=== PATIENT | male | born 1995 | race Caucasian/White ===

== ENCOUNTER 2017-11-16 13:35 | Emergency (ER) | payer BC, OTHER ==
[~2017-11-16] VITALS: Ht 182.9 cm; Wt 74.8 kg
[~2017-11-16 13:35] MED LIST: ZYRTEC10 M3 PO
--- OUTSIDE RECORDS SUMMARY | 2017-11-16 13:43 | XMS REPORT ---
Author Organization Unknown Address [address] [place] [address] Phone [phone] Care Team Providers Care Paralegal Internship Name Role Phone JOSE PALMA MD 109 [phone] ALISE BRIZUELA MD 129 [phone] Allergies Code Code System Name Reaction Severity Status Onset NKDA Medications Name Status Start Date Stop Date albuterol sulfate 2.5 mg/3 mL (0.083 %) solution for nebulization Completed 01/27/2017 amoxicillin 500 mg capsule Completed 10/02/2016 azithromycin 250 mg tablet Completed 01/27/2017 benzonatate 100 mg capsule Completed 08/25/2016 ceftriaxone 1 gram solution for injection Take 1 g by injection route. Completed 01/27/2017 Cheratussin AC 10 mg-100 mg/5 mL oral liquid Completed 10/02/2016 ciprofloxacin 500 mg tablet Completed 11/15/2017 enoxaparin 30 mg/0.3 mL subcutaneous syringe Active Not available ipratropium-albuterol 0.5 mg-3 mg(2.5 mg base)/3 mL nebulization soln Completed 11/15/2017 lactulose 10 gram/15 mL oral solution Completed 11/15/2017 levofloxacin 500 mg tablet Completed 10/02/2016 methylprednisolone 4 mg tablets in a dose pack Completed 01/27/2017 Myrbetriq 50 mg tablet,extended release Completed 04/20/2017 pantoprazole 20 mg tablet,delayed release Take 1 tablet every day by oral route as directed for 14 days. 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 Upper Respiratory Infection Active Procedures Date Name Performed by 11/22/2016 Back Surgery Information not available 08/16/2016 Other Information not available Leg Surgery Procedure Notes: Right ORIF and augusto removal for Femur Fx Information not available 10/02/2016 XR, Chest [facility] [place] [address] [place] [address] (Work Place) 11/15/2017 US, Abdomen [facility] [place] [address] [place] [address] (Work Place) Notes: femur broken-2012 Lab Results Date Name Specimen Result Interpretation Description Value Range Status Address Urinalysis, Dipstick Color Color yellow [facility]: [address], [place] Color Appearance clear [facility]: [address] , [place] Color Glucose negative [facility]: [address] , [place] Color Bilirubin negative [facility]: [address], [place] Color Ketones negative [facility]: [address] , [place] Color Specific [place] 1.025 [facility]: [address], [place] Color Blood trace [facility]: [address], [place] Color PH 6.5 [facility]: [address], [place] Color Protein negative [facility]: [address] , [place] Color Urobilinogen 1 [facility] [place]: [address] [facility] [facility], [place] Color Nitrites negative [facility]: [address] [facility] [facility] , [place] Color Leukocytes trace [facility]: [address] , [place] Past Encounters 11/15/2017 Dark-brown Colored Urine; Malaise and Fatigue; Abdominal Pain; Nonulcer Dyspepsia; Paralysis Kam Ontiveros MD: [address] [place] [address], Ph. 04/20/2017 Paralysis; Acute Urinary Tract Infection; Constipation Loan Moore MD: [address] [place] [address], Ph. 01/27/2017 Abrasion of Foot; Open Wound of Foot; Paralysis; Adult Health Examination Carmella Hicks MD: [address] [place] [phone], Ph. 10/02/2016 Asthmatic Bronchitis Gustavo Holt MD: [address] [place] [phone], Ph. 08/25/2016 Acute Bronchitis; Adult Health Examination Carmella Hicks MD: [address] [place] [phone], Ph. Social History Smoking Status Never Smoker Vaccine List Notes: none Plan of Care Patient Instructions continue nebuliser and inh Reminders Provider Appointments None recorded. Lab None recorded. Referral None recorded. Procedures None recorded. Surgeries None recorded. Imaging None recorded. Vitals 11/15/2017 01:30PM Est Patient Height Weight Blood Pressure 6 ft 106/70 mm[Hg] 04/20/2017 02:00PM Est Patient Height Weight Blood Pressure 6 ft 102/78 mm[Hg] 01/27/2017 02:00PM Est Patient Height Weight Blood Pressure 6 ft 98/76 mm[Hg] 10/02/2016 01:30PM Est Patient Height Weight BMI Blood Pressure 6 ft 153 lbs 20.8 kg/m2 117/76 mm[Hg] 08/25/2016 11:30AM Est Patient Height Weight BMI Blood Pressure 6 ft 158 lbs 21.4 kg/m2 124/84 mm[Hg]
[2017-11-16 15:21] LABS: BASOPHILS # (AUTO) 0.1 (0.0-0.1); BASOPHILS % 0.8 % (0.0-1.0); EOSINOPHILS # (AUTO) 0.4 (0.0-0.4); HEMATOCRIT 43.1 % (38.2-49.6); HEMOGLOBIN 15.5 g/dL (14.0-18.0); LYMPHOCYTES % 33.6 % (18.0-39.1); MEAN CORPUSCULAR HEMOGLOBIN 30.6 pg (28-32); MEAN CORPUSCULAR VOLUME 85.2 fL (81-99); MONOCYTES # (AUTO) 0.8 (0.2-0.8); MONOCYTES % 8.6 % (4.4-11.3); NEUTROPHILS # (AUTO) 4.6 (2.1-6.9); NEUTROPHILS % 51.8 % (38.7-80.0); PLATELET COUNT 283 x10e3/uL (140-360); RED BLOOD COUNT 5.06 x10e6/uL (4.3-5.7); RED CELL DISTRIBUTION WIDTH 12.2 % (11.7-14.4)
[2017-11-16 15:28] LABS: INR 1.1; PROTHROMBIN TIME 13.4 seconds (11.9-14.5)
[2017-11-16 15:29] LABS: PARTIAL THROMBOPLASTIN TIME 25.7 seconds (23.8-35.5)
[2017-11-16 15:36] LABS: ALANINE AMINOTRANSFERASE 30 IU/L (0-55); ALBUMIN 3.4 g/dL (3.5-5.0); ALKALINE PHOSPHATASE 83 IU/L (40-150); BLOOD UREA NITROGEN 12 mg/dL (7-26); BUN/CREATININE RATIO 15 (6-25); CALCIUM 9.1 mg/dL (8.4-10.2); CARBON DIOXIDE 28 mmol/L (22-29); CHLORIDE 102 mmol/L (98-107); CREATININE, SERUM 0.79 mg/dL (0.72-1.25); EST GLOMERULAR FILTRATION RATE > 60 ML/MIN (60-); GLUCOSE 99 mg/dL (74-118); SODIUM 138 mmol/L (136-145)
[2017-11-16] MEDS ORDERED: TRIMETHOPRIM/SULFAMETHOXAZOLE 160-800 MG TAB PO ONE (17:15)
--- NOTE | 2017-11-16 18:07 | Diagnostic Imaging Report ---
PROCEDURE:X-RAY PELVIS, AP VIEW COMPARISON:None. INDICATIONS:PELVIC/LEFT LEG SWELLING FINDINGS: A sclerotic lesion measuring at least 2.3 cm in the lesser trochanter of the left femur is incompletely imaged. A 13 mm ossicle is immediately adjacent. The left femur is appropriately situated in the acetabulum. Proximal right femur is intact and normally situated. No diastases the pubic symphysis or sacroiliac joints. The pubic rami are intact. There is a bifid spinous process of S1. No degenerative changes of the lumbar spine. Visualized bowel gas pattern is unremarkable. CONCLUSION: Sclerosis of the lesser trochanter of the left femur, incompletely imaged. Ossicle adjacent to the lesser trochanter is suggestive of an avulsion fracture from the iliopsoas muscle. Dictated by: Asia Mcdonald M.D. on 11/16/2017 at 18:07 Electronically approved by: Asia Mcdonald M.D. on 11/16/2017 at 18:07
--- NOTE | 2017-11-16 18:12 | Diagnostic Imaging Report ---
PROCEDURE:FEMUR 2 VIEWS MINIMUM LEFT COMPARISON:[facility], DX, PELVIS AP 1-2 VIEWS, 11/16/2017, 18:45. INDICATIONS:PELVIC/LEFT LEG SWELLING, paralyzed from waist down FINDINGS: The bones are diffusely demineralized consistent with history of paralysis. Focal sclerosis of the lesser trochanter measures 2.7 x 2.0 cm. There is a narrow zone of transition. No associated fracture. There is an ossicle medial to the lesser trochanter measuring 1.3 x 1.0 cm. No conclusive evidence of donor site. The femoral head is normal in morphology. The femoral neck is intact. There no degenerative changes of the hip. The mid and distal femur are intact and normal in appearance. The patella is normally situated. No knee effusion. Tibia and fibula are unremarkable. Visualized bones of the pelvis are intact and normal in morphology. No air or radiopaque foreign bodies in the soft tissues. CONCLUSION: 1. Ossicle medial to the lesser trochanter is suggestive of an avulsion fracture, likely from the iliopsoas. Other entity to consider would be a tendinous calcification. 2. Sclerosis immediately adjacent could be the result of healing. 3. Recommend MRI of the hip on an outpatient basis for further evaluation. 4. No acute fracture or dislocation. Dictated by: Asia Mcdonald M.D. on 11/16/2017 at 18:13 Electronically approved by: Asia Mcdonald M.D. on 11/16/2017 at 18:13
[2017-11-16 18:57] VITALS: BP 119/75
== END 2017-11-16 19:20 | disposition home or self-care (01) ==
LOC: ER 13:46
DX: M79.89 Other specified soft tissue disorders (principal); S72.002A Fracture of unspecified part of neck of left femur, initial encounter for closed fracture; G83.89 Other specified paralytic syndromes; L89.329 Pressure ulcer of left buttock, unspecified stage
CPT/HCPCS: 36415; 72170; 80053; 85025; 85610; 85730; 93971; 99284

== ENCOUNTER 2018-01-05 18:37 | Emergency (ER) | payer BC, OTHER ==
[~2018-01-05] VITALS: Ht 185.4 cm; Wt 74.8 kg
--- OUTSIDE RECORDS SUMMARY | 2018-01-05 18:40 | XMS REPORT ---
Author [facility] Address Unknown Phone Unavailable Care Team Providers Care Hat Maker Name Role Phone ANN MARIE GOMEZ Unavailable Unavailable Problems This patient has no known problems. Allergies, Adverse Reactions, Alerts This patient has no known allergies or adverse reactions. Medications This patient has no known medications. Results Test Description Test Time Test Comments Text Results Atomic Results Result Comments PELVIS AP 1-2 VIEWS [place] [address] Patient Name: CINTHIA BLAKE MR #: [id number] : 1995 Age/Sex: 21/M Req #: [id number] Adm Physician: Ordered by: SHRUTI LAGUNAS [employer]OP FOREMAN Report #: [id number] Location: ER Room/Bed: Procedure: [id number] DX/PELVIS AP 1-2 VIEWS Exam Date: 11/16/17 Exam Time: 1745 REPORT STATUS: Signed PROCEDURE: X-RAY PELVIS, AP VIEW COMPARISON: None. INDICATIONS: PELVIC/LEFT LEG SWELLING FINDINGS: A sclerotic lesion measuring at least 2.3 cm in the lesser trochanter of the left femur is incompletely imaged. A 13 mm ossicle is immediately adjacent. The left femur is appropriately situated in the acetabulum. Proximal right femur is intact and normally situated. No diastases the pubic symphysis or sacroiliac joints. The pubic rami are intact. There is a bifid spinous process of S1. No degenerative changes of the lumbar spine. Visualized bowel gas pattern is unremarkable. CONCLUSION: Sclerosis of the lesser trochanter of the left femur, incompletely imaged. Ossicle adjacent to the lesser trochanter is suggestive of an avulsion fracture from the iliopsoas muscle. Dictated by: Ceci Mcdonald M.D. on 11/16/2017 at 18:07 Electronically approved by: Ceci Mcdonald M.D. on 11/16/2017 at 18:07 Dictated By: CECI MCDONALD MD 06 Transcribed By: BRENDA on 11/16/171806 COPY TO: SHRUTI LAGUNAS NP FEMUR 2 VIEWS MINIMUM LEFT [place] [address] Patient Name: CINTHIA BLAKE MR #: [id number] : 1995 Age/Sex: 21/M Req #: [id number] Adm Physician: Ordered by: SHRUTI LAGUNAS NP Report #: [id number] Location: ER Room/Bed: Procedure: [id number] DX/FEMUR 2 VIEWS MINIMUM LEFT Exam Date: Exam Time: REPORT STATUS: Signed PROCEDURE: FEMUR 2 VIEWS MINIMUM LEFT COMPARISON: [facility], DX, PELVIS AP 1- 2 VIEWS, 11/16/2017, 18:45. INDICATIONS: PELVIC/LEFT LEG SWELLING, paralyzed from waist down FINDINGS: The bones are diffusely demineralized consistent with history of paralysis. Focal sclerosis of the lesser trochanter measures 2.7 x 2.0 cm. There is a narrow zone of transition. No associated fracture. There is an ossicle medial to the lesser trochanter measuring 1.3 x 1.0 cm. No conclusive evidence of donor site. The femoral head is normal in morphology. The femoral neck is intact. There no degenerative changes of the hip. The mid and distal femur are intact and normal in appearance. The patella is normally situated. No knee effusion. Tibia and fibula are unremarkable. Visualized bones of the pelvis are intact and normal in morphology. No air or radiopaque foreign bodies in the soft tissues. CONCLUSION: 1. Ossicle medial to the lesser trochanter is suggestive of an avulsion fracture, likely from the iliopsoas. Other entity to consider would be a tendinous calcification. 2. Sclerosis immediately adjacent could be the result of healing. 3. Recommend MRI of the hip on an outpatient basis for further evaluation. 4. No acute fracture or dislocation. Dictated by: Ceci Mcdonald M.D. on 11/16/2017 at 18:13 Electronically approved by: Ceci Mcdonald M.D. on 11/16/2017 at 18:13 Dictated By: CECI MCDONALD MD 12 Transcribed By : BRENDA on 11/16/171812 COPY TO: SHRUTI LAGUNAS NP
--- OUTSIDE RECORDS SUMMARY | 2018-01-05 18:40 | XMS REPORT | Continuity of Care Document ---
Author Author [facility] Organization [facility] Address [address] [place] [address] Phone Unavailable Care Team Providers Care Pillowcase Turner Name Role Phone NONSTAFF PCP Unavailable Insurance Providers Guarantor Feliz Lao Address [address] [place] [address] Payer [facility]po Policy Number [id number] Subscriber's Name Feliz Lao Jr Relationship G8 Other Relationship Group Number [id number] Group [facility] Effective Date 13 Advance Directives Directive Response Recorded Date/Time Does the patient have an advance directive? No 10/25/13 4:32pm If yes, is advance directive on file with [facility]? No 10/25/13 4:32pm If not on file with [facility] will patient provide a copy? No 10/25/13 4:32pm Do you have a Directive to Physician? No 11/16/17 2:39pm Do you have a Medical Power of Extrusion Die Repairer? No 11/16/17 2:39pm Do you have an out of hospital Do Not Resuscitate Order? No 11/16/17 2:39pm Do you have any special needs we should be aware of? No 11/16/17 2:39pm Do you have a support person here with you today? Yes 11/16/17 2:39pm Did patient receive Notice of Privacy Practices? Yes 11/16/17 2:39pm Did patient receive patient rights and responsibilities? Yes 11/16/17 2:39pm Problems No problem information available. Medications Current Home Medications Medication Dose Units Route Directions Days Qty Instructions Start Date Cetirizine Hcl (Zyrtec) 10 Mg Capsule 10 Mg Oral Daily Social History Social History Problem Response Recorded Date/Time Onset Date Status Hx Psychiatric Problems No 10/25/2013 4:32pm Not Applicable Not Applicable Hx Eating Disorder No 10/25/2013 4:32pm Not Applicable Not Applicable Hx Substance Use Disorder Yes 10/25/2013 4:32pm Not Applicable Not Applicable Hx Depression No 10/25/2013 4:32pm Not Applicable Not Applicable Hx Alcohol Use No 10/25/2013 4:32pm Not Applicable Not Applicable Hx Substance Use Treatment No 10/25/2013 4:32pm Not Applicable Not Applicable Hx Physical Abuse No 10/25/2013 4:32pm Not Applicable Not Applicable Hospital Discharge Instructions No hospital discharge instruction information available. Plan of Care Discharge Date 11/16/17 7:20pm Disposition HOME, SELF-CARE Condition at Discharge Stable Forms Provided Work/School Excuse Prescriptions See Medication Section Referrals Dr NGA Jett VICTOR DO Address: [address] [place] [address] Additional Instructions/Education FOLLOW UP WITH PCP AND WITH MRI OF LEFT HIP NO STENUOUS ACTIVITY, NO WEIGHT BEARING RETURN TO EMERGENCY DEPARTMENT IF FEVER OVER 100.4 UNRELIEVED BY MEDICATIONS, CHEST PAIN OR SHORTNESS OF BREATH, OR ANY OTHER NEW SYMPTOMS AND/OR WORSENING CONDITIONS OF THE CURRENT Functional Status No functional status information available. Allergies, Adverse Reactions, Alerts No known allergies. Immunizations No immunization information available. Vital Signs Acute Vital Signs Vital Response Date/Time Temperature (Fahrenheit) 99.5 degrees F (97.6 - 99.5) 11/16/2017 6:57pm Pulse Pulse Rate (adult) 80 bpm (60 - 90) 11/16/2017 6:57pm Pulse Pulse Rate (adult) 80 bpm (60 - 90) 11/16/2017 6:57pm Respiratory Rate 18 bpm (12 - 24) 11/16/2017 6:57pm Blood Pressure 119/75 mm Hg 11/16/2017 6:57pm Height 6 ft 0 in 11/16/2017 1:43pm Weight 165 lb 11/16/2017 1:43pm Body Mass Index 22.4 kg/m^2 11/16/2017 1:43pm Results Laboratory Results Test Name Result Units Flags Reference Collection Date/Time Result Date/ Time Comments White Blood Count 8.81 x10e3/uL 4.8-10.8 11/16/2017 3:11pm 11/16/2017 3 :22pm Red Blood Count 5.06 x10e6/uL 4.3-5.7 11/16/2017 3:1111/16/2017 3: 22pm Hemoglobin 15.5 g/dL 14.0-18.0 11/16/2017 3:1111/16/2017 3:22pm Hematocrit 43.1 % 38.2-49.6 11/16/2017 3:1111/16/2017 3:22pm Mean Corpuscular Volume 85.2 fL 81-99 11/16/2017 3:11pm 11/16/2017 3: 22pm Mean Corpuscular Hemoglobin 30.6 pg 28-32 11/16/2017 3:11pm 11/16/2017 3:22pm Mean Corpuscular Hemoglobin Concent 36.0 g/dL H 31-35 11/16/2017 3:1111/16/2017 3:22pm Red Cell Distribution Width 12.2 % 11.7-14.4 11/16/2017 3:11pm 2017 3:22pm Platelet Count 283 x10e3/uL 140-360 11/16/2017 3:1111/16/2017 3: 22pm Neutrophils (%) (Auto) 51.8 % 38.7-80.0 11/16/2017 3:11pm 11/16/2017 3: 22pm Lymphocytes (%) (Auto) 33.6 % 18.0-39.1 11/16/2017 3:11/16/2017 3: 22pm Monocytes (%) (Auto) 8.6 % 4.4-11.3 11/16/2017 3:11pm 11/16/2017 3: 22pm Eosinophils (%) (Auto) 5.0 % 0.0-6.0 11/16/2017 3:11/16/2017 3: 22pm Basophils (%) (Auto) 0.8 % 0.0-1.0 11/16/2017 3:11pm 11/16/2017 3:22pm IM GRANULOCYTES % 0.2 % 0.0-1.0 11/16/2017 3:11pm 11/16/2017 3:22pm Neutrophils # (Auto) 4.6 2.1-6.9 11/16/2017 3:11pm 11/16/2017 3:22pm Lymphocytes # (Auto) 3.0 1.0-3.2 11/16/2017 3:11pm 11/16/2017 3:22pm Monocytes # (Auto) 0.8 0.2-0.8 11/16/2017 3:11pm 11/16/2017 3:22pm Eosinophils # (Auto) 0.4 0.0-0.4 11/16/2017 3:11pm 11/16/2017 3:22pm Basophils # (Auto) 0.1 0.0-0.1 11/16/2017 3:11pm 11/16/2017 3:22pm Absolute Immature Granulocyte (auto 0.02 x10e3/uL 0-0.1 11/16/2017 3: 11pm 11/16/2017 3:22pm Prothrombin Time 13.4 seconds 11.9-14.5 11/16/2017 3:11pm 11/16/2017 3: 35pm Prothromb Time International Ratio 1.10 11/16/2017 3:11pm 2017 3:35pm Oral Anticoagulant Therapy INR Values: 1. Low Intensity Therapy 1.5 - 2.0 2. Moderate Intensity Therapy 2.0 - 3.0 3. High Intensity Therapy(1) 2.5 - 3.5 4. High Intensity Therapy(2) 3.0 - 4.0 5. Panic Value INR > 5.0 Activated Partial Thromboplast Time 25.7 seconds 23.8-35.5 11/16/2017 3: 11pm 11/16/2017 3:35pm Sodium Level 138 mmol/L 136-145 11/16/2017 3:11pm 11/16/2017 3:38pm Potassium Level 4.0 mmol/L 3.5-5.1 11/16/2017 3:11pm 11/16/2017 3:38pm Chloride Level 102 mmol/L 98-107 11/16/2017 3:11pm 11/16/2017 3:38pm Carbon Dioxide Level 28 mmol/L 22-29 11/16/2017 3:11pm 11/16/2017 3: 38pm Anion Gap 12.0 mmol/L 8-16 11/16/2017 3:11pm 11/16/2017 3:38pm Blood Urea Nitrogen 12 mg/dL 7-26 11/16/2017 3:11pm 11/16/2017 3:38pm Creatinine 0.79 mg/dL 0.72-1.25 11/16/2017 3:11pm 11/16/2017 3:38pm BUN/Creatinine Ratio 15 6-25 11/16/2017 3:11pm 11/16/2017 3:38pm Estimat Glomerular Filtration Rate > 60 ML/MIN 60- 11/16/2017 3:11pm 3:38pm Ranges were taken from the National Kidney Disease Education Program and the National Kidney Foundation literature. Reference ranges: 60 or greater: Normal 16-59 (for 3 consecutive months): Chronic kidney disease 15 or less: Kidney failure Glucose Level 99 mg/dL 74-118 11/16/2017 3:11pm 11/16/2017 3:38pm Calcium Level 9.1 mg/dL 8.4-10.2 11/16/2017 3:11pm 11/16/2017 3:38pm Total Bilirubin 0.8 mg/dL 0.2-1.2 11/16/2017 3:11pm 11/16/2017 3:38pm Aspartate Amino Transf (AST/SGOT) 22 IU/L 5-34 11/16/2017 3:11pm 2017 3:38pm Alanine Aminotransferase (ALT/SGPT) 30 IU/L 0-55 11/16/2017 3:11pm 10/2017 3:38pm Total Protein 6.9 g/dL 6.5-8.1 11/16/2017 3:11pm 11/16/2017 3:38pm Albumin 3.4 g/dL L 3.5-5.0 11/16/2017 3:11pm 11/16/2017 3:38pm Globulin 3.5 g/dL 2.3-3.5 11/16/2017 3:11pm 11/16/2017 3:38pm Albumin/Globulin Ratio 1.0 0.8-2.0 11/16/2017 3:11pm 11/16/2017 3: 38pm Alkaline Phosphatase 83 IU/L 40-150 11/16/2017 3:11pm 11/16/2017 3: 38pm Procedures No procedure information available. Encounters Encounter Location Arrival/Admit Date Discharge/Depart Date Attending Provider Departed Emergency Room [facility] 11/16/17 1:46pm 7:20pm ANN MARIE GOMEZ MD
[2018-01-05 20:01] LABS: CLARITY,URINE CLOUDY (CLEAR); COLOR,URINE YELLOW (YELLOW); LEUKOCYTE ESTERASE ,URINE 2+ (NEGATIVE)
[2018-01-05 20:02] LABS: BACTERIA,URINE MANY /HPF; BILIRUBIN,URINE NEGATIVE (NEGATIVE); KETONES,URINE NEGATIVE (NEGATIVE); MUCUS,URINE FEW (RARE); NITRITE,URINE POSITIVE (NEGATIVE); PROTEIN,URINE DIPSTICK 1+ (NEGATIVE); RBC,URINE 0-5 /HPF (0-5); URINE UROBILINOGEN 0.2 mg/dL (0.2 - 1); WBC,URINE (MAN) 21-50 /HPF (0-5)
[2018-01-05] MEDS ORDERED: CEFTRIAXONE SOD 1 GM VIAL IM ONE (20:30)
[2018-01-05] MEDS ORDERED: LIDOCAINE HCL 1% LOCAL INJ 20 ML VIAL ONE (20:38)
== END 2018-01-05 21:51 | disposition home or self-care (01) ==
LOC: ER 18:37
DX: N39.0 Urinary tract infection, site not specified (principal); G82.20 Paraplegia, unspecified
CPT/HCPCS: 81001; 87086; 87186; 99283; J0696; J2001

== ENCOUNTER 2018-01-18 09:44 | Emergency (ER) | payer BC, OTHER ==
[~2018-01-18] VITALS: Ht 185.4 cm; Wt 72.6 kg
--- OUTSIDE RECORDS SUMMARY | 2018-01-18 09:48 | XMS REPORT | Continuity of Care Document ---
Author Author [facility] Organization [facility] Address [address] [place] [address] Phone Unavailable Care Team Providers Care Geophysical Laboratory Chief Name Role Phone NONSTAFF PCP Unavailable Insurance Providers Guarantor Feliz Blake Address [address] [place] [address] [facility] Policy Number [id number] Subscriber's Name Cinthia Blake Relationship 18 Self / Same As Patient Group Number [id number] Effective Date [address] [facility] Policy Number [id number] Subscriber's Name Feliz Blake Jr Relationship G8 Other Relationship Group Number [id number] Group Name [facility] Effective Date 13 Advance Directives Directive Response Recorded Date/Time Does the patient have an advance directive? No 10/25/13 4:32pm If yes, is advance directive on file with [facility]? No 10/25/13 4:32pm If not on file with [facility] will patient provide a copy? No 10/25/13 4:32pm Do you have a Directive to Physician? No 01/05/18 7:06pm Do you have a Medical Power of Fruit Express Agent? No 01/05/18 7:06pm Do you have an out of hospital Do Not Resuscitate Order? No 01/05/18 7:06pm Do you have any special needs we should be aware of? No 01/05/18 7:06pm Do you have a support person here with you today? Yes 01/05/18 7:06pm Did patient receive Notice of Privacy Practices? Yes 01/05/18 7:06pm Did patient receive patient rights and responsibilities? Yes 01/05/18 7:06pm Problems No problem information available. Medications Current [...] No 10/25/2013 4:32pm Not Applicable Not Applicable Smoking Status Start Date Stop Date Never Smoker Hospital Discharge Instructions No hospital discharge instruction information available. Plan of Care Discharge Date 01/05/18 9:51pm Disposition HOME, SELF-CARE Condition at Discharge Stable Instructions/Education Provided Urinary Tract Infection - Men Forms Provided Work/School Excuse Prescriptions See Medication Section Referrals Dr JACKELIN Jett EDWARD MD Address: [address] [place] [id number] Additional Instructions/Education 1. follow up with your doctor in 1-2 days without fail 2. return to ed as needed 3. tylenol and motrin as needed for fever Functional Status No functional status information available. [...] mm Hg 11/16/2017 6:57pm Height 6 ft 1 in 01/05/2018 7:07pm Weight 165 lb 01/05/2018 7:07pm Body Mass Index 21.8 kg/m^2 01/05/2018 7:07pm Results Laboratory Results Test Name Result Units Flags Reference Collection Date/Time Result Date/ Time Comments White Blood Count 8.81 x10e3/uL 4.8-10.8 11/16/2017 3:11pm 11/16/2017 3 :22pm Red Blood Count 5.06 x10e6/uL 4.3-5.7 11/16/2017 3:11pm 11/16/2017 3: 22pm Hemoglobin 15.5 g/dL 14.0-18.0 11/16/2017 3:11pm 11/16/2017 3:22pm Hematocrit 43.1 % 38.2-49.6 11/16/2017 3:11pm 11/16/2017 3:22pm Mean Corpuscular Volume 85.2 fL 81-99 11/16/2017 3:11pm 11/16/2017 3: 22pm Mean Corpuscular Hemoglobin 30.6 pg 28-32 11/16/2017 3:11pm 11/16/2017 3:22pm Mean Corpuscular Hemoglobin Concent 36.0 g/dL H 31-35 11/16/2017 3:11pm 11/16/2017 3:22pm Red Cell Distribution Width 12.2 % 11.7-14.4 11/16/2017 3:11pm 2017 3:22pm Platelet Count 283 x10e3/uL 140-360 11/16/2017 3:11pm 11/16/2017 3: 22pm Neutrophils (%) (Auto) 51.8 % 38.7-80.0 11/16/2017 3:11pm 11/16/2017 3: 22pm Lymphocytes (%) (Auto) 33.6 % 18.0-39.1 11/16/2017 3:11pm 11/16/2017 3: 22pm Monocytes (%) (Auto) 8.6 % 4.4-11.3 11/16/2017 3:11pm 11/16/2017 3: 22pm Eosinophils (%) (Auto) 5.0 % 0.0-6.0 11/16/2017 3:11pm 11/16/2017 3: 22pm Basophils (%) (Auto) 0.8 % [...] 3:38pm Chloride Level 102 mmol/L 98-107 11/16/2017 3:1111/16/2017 3:38pm Carbon Dioxide Level 28 mmol/L 22-29 [...] IU/L 40-150 11/16/2017 3:11pm 11/16/2017 3: 38pm Urine Color YELLOW YELLOW 01/05/2018 7:11pm 01/05/2018 8:02pm Urine Clarity CLOUDY H CLEAR 01/05/2018 7:11pm 01/05/2018 8:02pm Urine Specific [place] 1.030 H 1.010-1.025 01/05/2018 7:11pm 2017 8:02pm Urine pH 7 5 - 7 01/05/2018 7:11pm 01/05/2018 8:02pm Urine Leukocyte Esterase 2+ H NEGATIVE 01/05/2018 7:11pm 01/05/2018 8: 02pm Urine Nitrite POSITIVE H NEGATIVE 01/05/2018 7:11pm 01/05/2018 8:02pm Urine Protein 1+ H NEGATIVE 01/05/2018 7:11pm 01/05/2018 8:02pm Urine Glucose (UA) NEGATIVE NEGATIVE 01/05/2018 7:11pm 01/05/2018 8: 02pm Urine Ketones NEGATIVE NEGATIVE 01/05/2018 7:11pm 01/05/2018 8:02pm Urine Urobilinogen 0.2 mg/dL 0.2 - 1 01/05/2018 7:11pm 01/05/2018 8: 02pm Urine Bilirubin NEGATIVE NEGATIVE 01/05/2018 7:11pm 01/05/2018 8: 02pm Urine Blood NEGATIVE NEGATIVE 01/05/2018 7:11pm 01/05/2018 8:02pm Urine WBC 21-50 /HPF H 0-5 01/05/2018 7:11pm 01/05/2018 8:02pm Urine RBC 0-5 /HPF 0-5 01/05/2018 7:11pm 01/05/2018 8:02pm Urine Bacteria MANY /HPF H NONE 01/05/2018 7:11pm 01/05/2018 8:02pm Urine Epithelial Cells NONE /LPF NONE 01/05/2018 7:11pm 01/05/2018 8: 02pm Urine Mucus FEW H RARE 01/05/2018 7:11pm 01/05/2018 8:02pm Procedures No procedure information available. Encounters Encounter Location Arrival/Admit Date Discharge/Depart Date Attending Provider Departed Emergency Room [facility] 01/05/18 6:37pm 9:51pm LEEANN COTTO MD Departed Emergency Room [facility] 11/16/17 1:46pm 7:20pm ANN MARIE GOMEZ MD
[2018-01-18] MEDS ORDERED: CEFTRIAXONE SOD 1 GM VIAL IM ONE (10:30)
[2018-01-18 11:16] LABS: COLOR,URINE YELLOW (YELLOW)
[2018-01-18 11:17] LABS: BILIRUBIN,URINE NEGATIVE (NEGATIVE); CLARITY,URINE CLOUDY (CLEAR); KETONES,URINE NEGATIVE (NEGATIVE); LEUKOCYTE ESTERASE ,URINE 2+ (NEGATIVE); NITRITE,URINE POSITIVE (NEGATIVE); PROTEIN,URINE DIPSTICK TRACE (NEGATIVE); URINE UROBILINOGEN 0.2 mg/dL (0.2 - 1)
[2018-01-18 11:28] LABS: BACTERIA,URINE MODERATE /HPF; EPITHELIAL CELLS,URINE FEW /LPF; RBC,URINE 0-5 /HPF (0-5); TRIPLE PHOSPHATE CRYSTAL,UR FEW (FEW)
[2018-01-18 12:01] VITALS: BP 117/78
== END 2018-01-18 12:07 | disposition home or self-care (01) ==
LOC: ER 09:54
DX: N30.00 Acute cystitis without hematuria (principal); G82.20 Paraplegia, unspecified
CPT/HCPCS: 81001; 87086; 87186; 99283; J0696

== ENCOUNTER → 2018-02-28 | Outpatient (CLI) | payer BC, OTHER ==
--- NOTE | 2018-02-28 11:06 | Diagnostic Imaging Report ---
PROCEDURE:US RETROPERITONEAL ( KIDNEY ). COMPARISON:None. INDICATIONS:UTI. Incontinence and neuromuscular dysfunction. TECHNIQUE: Hagan-scale and color sonographic images of the bilateral kidneys and bladder where obtained in transverse and longitudinal planes. FINDINGS: RIGHT KIDNEY: 9.9 cm, cortex 1.2 cm Cysts: None. Solid masses: None. Stones: None. Hydronephrosis: None. Echogenicity: Normal. LEFT KIDNEY: 11.4 cm, cortex 2.3 cm Cysts: None. Solid masses: None. Stones: None. Hydronephrosis: None. Echogenicity: Normal. Bladder: Unremarkable. Prostate: 2.7 x 2.6 x 3.3 cm, within normal limits. CONCLUSION: Unremarkable renal ultrasound. Dictated by: Saúl Villa M.D. on 02/28/2018 at 11:11 Electronically approved by: Saúl Villa M.D. on 02/28/2018 at 11:11
--- NOTE | 2018-02-28 11:17 | Diagnostic Imaging Report ---
PROCEDURE:X-RAY ABDOMEN - KUB COMPARISON:Pelvic x-ray dated 11/16/17 INDICATIONS:UTI FINDINGS: BOWEL GAS PATTERN:Non-specific bowel gas pattern. No signs of pneumoperitoneum. CALCIFICATIONS:No calcifications overlying renal shadows. OTHER:Lung bases are clear. Partially imaged thoracic spine fixation hardware. No acute osseous abnormality. CONCLUSION: Nonobstructive bowel gas pattern. No evidence of nephrolithiasis. Dictated by: Saúl Villa M.D. on 02/28/2018 at 11:21 Electronically approved by: Saúl Villa M.D. on 02/28/2018 at 11:21
== END ==
LOC: US 09:55
PROVIDERS: ATTEND Urology
DX: N39.0 Urinary tract infection, site not specified (principal); N31.9 Neuromuscular dysfunction of bladder, unspecified; N39.46 Mixed incontinence
CPT/HCPCS: 74018; 76770

== ENCOUNTER → 2018-08-10 | Day surgery (SDC) | payer BC, OTHER ==
[~2018-08-10] MED LIST changes: +ALBUTEROL0.63 MG/3 INH; +BELLADONNA/OPIUM 30 MG SUPP RC ONE; +BOTULINUM TOXIN TYPE A 100 UNIT VIAL IM ONE; +DEXAMETHASONE SOD PHOS INJ 4 MG/ML VIAL ONE; +FENTANYL CITRATE/PF 100MCG/2 ML INJ ONE; +GENTAMICIN 80MG/NS 100 ML 200 ML IV ONE; +IOPAMIDOL 610MG/1ML 300 MG/ML VIAL IV ONE; +LIDOCAINE HCL 2% LOCAL INJ 5 ML SDV VIAL INJ ONE; +MIDAZOLAM HCL 2 MG/2 ML VIAL ONE; +MYRBETRIQ50 MG PO; +ONDANSETRON HCL INJ 2MG/ML 2ML 2 MG/ML VIAL ONE; +PIPER-TAZ 3.375 GM 50 ML ONE; +PROPOFOL IV EMULSION 10 MG/ML 20 ML VIAL ONE; +SEVOFLURANE INHAL SOLN 250 ML PEN BTL ONE; +STOOL SOFTENER1 EAC2 PO
--- OUTSIDE RECORDS SUMMARY | 2018-08-10 06:49 | XMS REPORT ---
Author Organization Unknown Address [address] [place] [address] Phone [phone] Care Team Providers Care Sales Account Executive Name Role Phone JOSE PALMA MD 109 [phone] ALISE BRIZUELA MD 129 [phone] Allergies Code Code System Name Reaction Severity [...] Fx Information not available 10/02/2016 XR, Chest [facility] [place] [address] [place] [address] (Work [address]) 11/15/2017 US, Abdomen [facility] [place] [facility] [place] [address] [place] [address] (Work Place) Notes: femur broken-2012 Lab Results Date Name Specimen Result Interpretation Description Value Range Status Address Urinalysis, Dipstick Color Color yellow [facility]: [address] [place] [address], [place] Color Appearance clear [facility]: [address] [facility], [place] Color Glucose negative [facility]: [address] [facility], [place] Color Bilirubin negative [facility]: [address] [facility], [place] Color Ketones negative [facility]: [address] [place] [address], [place] Color Specific [place] 1.025 [facility]: [address] [place] [address], [place] Color Blood trace [facility]: [address] [place] [address], [place] Color PH 6.5 [facility]: [address] [place] [address], [place] Color Protein negative [facility]: [address] [place] [address], [place] Color Urobilinogen 1 [facility]: [address] [facility], [place] Color Nitrites negative [facility]: [address] [facility], [place] Color Leukocytes trace [facility]: [address] [facility], [place] Past Encounters 11/15/2017 Dark-brown Colored Urine; Malaise and Fatigue; Abdominal Pain; Nonulcer Dyspepsia; Paralysis Kam Ontiveros MD: [address] [place] [address], Ph. 04/20/2017 Paralysis; Acute Urinary Tract Infection; Constipation Loan Moore MD: [address] [place] [address], Ph. 01/27/2017 Abrasion of Foot; Open Wound of Foot; Paralysis; Adult Health Examination Carmella Hicks MD: [address] [place] [phone], Ph. 10/02/2016 Asthmatic Bronchitis Gustavo Holt MD: [address] [place] [phone], Ph. 08/25/2016 Acute Bronchitis; Adult Health Examination Carmella Hicks MD: [address] [place] [phone], Ph. Social History Smoking Status Never Smoker [...]
--- OUTSIDE RECORDS SUMMARY | 2018-08-10 06:49 | XMS REPORT | Continuity of Care Document ---
Author Author [facility] Interface Address Unknown Phone Unavailable Problems Problem Status Onset Date Classification Date Reported Comments Source Nonulcer dyspepsia 11/15/2017 Diagnosis 11/16/[address] [facility] Abdominal pain 11/15/2017 Diagnosis 11/16/[address] [facility] Malaise and fatigue 11/15/2017 Diagnosis 11/16/[address] [facility] Dark-brown colored urine 11/15/2017 Diagnosis 11/16/[address] [facility] Constipation 04/20/2017 Diagnosis 11/16/[address] [facility] Acute urinary tract infection 04/20/2017 Diagnosis 11/16/[address] [facility] Open wound of foot 01/27/2017 Diagnosis 11/16/[address] [facility] Abrasion of foot 01/27/2017 Diagnosis 11/16/[address] [facility] Paralysis 01/27/2017 Problem 11/16/[address] [facility] Asthmatic bronchitis 10/02/2016 Diagnosis 11/16/[address] [facility] Adult health examination 08/25/2016 Diagnosis 11/16/[address] [facility] Acute bronchitis 08/25/2016 Diagnosis 11/16/[address] [facility] Upper Respiratory Infection Problem 11/16/[address] [facility] Medications Medication Details Route Status Patient Instructions Ordering Provider Order Date Source Ciprofloxacin 500 MG Oral Tablet ciprofloxacin 500 mg tablet Active 11/15/[address] [facility] Albuterol 0.833 MG/ML / Ipratropium [place] 0.167 MG/ML Inhalant Solution ipratropium-albuterol 0.5 mg-3 mg(2.5 mg base)/3 mL nebulization soln Active 11/15/[address] [facility] Lactulose 667 MG/ML Oral Solution lactulose 10 gram/15 mL oral solution Active 11/15/[address] [facility] 24 HR mirabegron 50 MG Extended Release Oral Tablet [Myrbetriq] Myrbetriq 50 mg tablet,extended release Active 04/20/[address] [facility] pantoprazole 40 MG Delayed Release Oral Tablet pantoprazole 40 mg tablet,delayed release Active 04/20/[address] [facility] POLYETHYLENE GLYCOL 3350 60678 MG Powder for Oral Solution polyethylene glycol 3350 17 gram/dose oral powder ONCE EVERY OTHER DAY PRN Active 04/20/[address] [facility] COLLAGENASE 0.25 UNT/MG Topical Ointment [Santyl] Santyl 250 unit/gram topical ointment Active 04/20/[address] [facility] Albuterol 0.83 MG/ML Inhalant Solution albuterol sulfate 2.5 mg/3 mL (0.083 %) solution for nebulization Active 01/27/[address] [facility] Azithromycin 250 MG Oral Tablet azithromycin 250 mg tablet Active 01/27/[address] [facility] Ceftriaxone 1000 MG Injection ceftriaxone 1 gram solution for injection Take 1 g by injection route. Active 01/27/[address] [facility] methylprednisolone 4 mg tablets in a dose pack methylprednisolone 4 mg tablets in a dose pack Active 01/27/[address] [facility] Amoxicillin 500 MG Oral Capsule amoxicillin 500 mg capsule Active 10/02/[address] [facility] Codeine Phosphate 2 MG/ML / Guaifenesin 20 MG/ML Oral Solution [Cheratussin] Cheratussin AC 10 mg-100 mg/5 mL oral liquid Active 10/02/[address] [facility] Levofloxacin 500 MG Oral Tablet levofloxacin 500 mg tablet Active 10/02/[address] [facility] benzonatate 100 MG Oral Capsule benzonatate 100 mg capsule Active 08/25/[address] [facility] 0.3 ML Enoxaparin sodium 100 MG/ML Prefilled Syringe enoxaparin 30 mg/0.3 mL subcutaneous syringe Active [facility] pantoprazole 20 MG Delayed Release Oral Tablet pantoprazole 20 mg tablet,delayed release Take 1 tablet every day by oral route as directed for [address] [facility] 200 ACTUAT Albuterol 0.09 MG/ACTUAT Metered Dose Inhaler [Ventolin] Ventolin HFA 90 mcg/actuation aerosol inhaler Active [facility] Allergies, Adverse Reactions, Alerts Substance Category Reaction Severity Reaction type Status Date Reported Comments Source Immunizations Immunization Date Given Site Status Last Updated Comments Source Results Order Name Results Value Reference Range Date Interpretation Comments Source Vital Signs Vital Sign Value Date Comments Source Diastolic (mm Hg) 70 11/15/2017 [facility] Height 72 11/15/[address] [facility] Systolic (mm Hg) 106 11/15/[address] [facility] Diastolic (mm Hg) 78 04/20/[address] [facility] Height 72 04/20/2017 [facility] Systolic (mm Hg) 102 04/20/2017 [facility] Diastolic (mm Hg) 76 01/27/2017 [facility] Height 72 01/27/2017 [facility] Systolic (mm Hg) 98 01/27/2017 [facility] Diastolic (mm Hg) 76 10/02/2016 [facility] Height 72 10/02/2016 [facility] Systolic (mm Hg) 117 10/02/2016 [facility] Weight 153 10/02/2016 [facility] Diastolic (mm Hg) 84 08/25/2016 [facility] Height 72 08/25/2016 [facility] Systolic (mm Hg) 124 08/25/2016 [facility] Weight 158 08/25/2016 [facility] Encounters Location Location Details Encounter Type Encounter Number Reason For Visit Attending Provider ADM Date DC Date Status Source [facility] Carmella Hicks MD: [facility] [place] [address], Ph. [id number] Carmella Hicks 08/25/[address] [facility] Gustavo Holt MD: [facility] [place] [address], Ph. [id number] Gustavo Holt 10/02/[address] [facility] Carmella Hicks MD: [facility] [place] [address], Ph. [id number] Carmella Hicks 01/27/[address] [facility] Loan Moore MD: [address] [place] [address], Ph. [id number] Loan Moore 04/20/[address] [facility] Kam Ontiveros MD: [address] [place] [address], Ph. [id number] Kam Ontiveros 11/15/[address] [facility] Procedures Procedure Code Date Perfomer Comments Source US, ABDOMINAL COMPLETE 60180 11/15/[address] [facility] Back Surgery 11/22/[address] [facility] XR, chest 10/02/[address] [facility] Other 08/16/[address] [facility] Leg Surgery Procedure [id number] [facility]
[2018-08-10 07:28] LABS: BASOPHILS % 0.7 % (0.0-1.0); EOSINOPHILS # (AUTO) 0.2 (0.0-0.4); HEMATOCRIT 45.9 % (38.2-49.6); HEMOGLOBIN 15.9 g/dL (14.0-18.0); LYMPHOCYTES # (AUTO) 1.5 (1.0-3.2); LYMPHOCYTES % 24.9 % (18.0-39.1); MEAN CORPUSCULAR HEMOGLOBIN 29.9 pg (28-32); MEAN CORPUSCULAR HGB CONC 34.6 g/dL (31-35); MEAN CORPUSCULAR VOLUME 86.4 fL (81-99); MONOCYTES # (AUTO) 0.5 (0.2-0.8); MONOCYTES % 8.3 % (4.4-11.3); NEUTROPHILS # (AUTO) 3.8 (2.1-6.9); NEUTROPHILS % 61.9 % (38.7-80.0); PLATELET COUNT 177 x10e3/uL (140-360); RED BLOOD COUNT 5.31 x10e6/uL (4.3-5.7); RED CELL DISTRIBUTION WIDTH 12.2 % (11.7-14.4)
[2018-08-10 07:44] LABS: ANION GAP 12.6 mmol/L (8-16); BLOOD UREA NITROGEN 13 mg/dL (7-26); BUN/CREATININE RATIO 15 (6-25); CALCIUM 9.3 mg/dL (8.4-10.2); CARBON DIOXIDE 27 mmol/L (22-29); CHLORIDE 102 mmol/L (98-107); CREATININE, SERUM 0.86 mg/dL (0.72-1.25); EST GLOMERULAR FILTRATION RATE > 60 ML/MIN (60-); GLUCOSE 88 mg/dL (74-118); POTASSIUM 3.6 mmol/L (3.5-5.1); SODIUM 138 mmol/L (136-145)
[2018-08-10 11:15] VITALS: BP 112/79
--- NOTE | 2018-10-10 08:27 | Operative Report ---
DATE OF PROCEDURE: 08/10/2018 SURGEON: Denny Jean Baptiste MD PREOPERATIVE DIAGNOSES: 1. Refractory urge incontinence. 2. Urinary tract infections. POSTOPERATIVE DIAGNOSES: 1. Refractory urge incontinence. 2. Urinary tract infections. 3. Urethral stricture disease. OPERATIONS PERFORMED: 1. Cystourethroscopy with calibration and dilation of urethral stricture (Surgery performed for the diagnosis of stricture). 2. Cystourethroscopy with bilateral ureteral catheterization and retrograde urethrography ( urinary tract infections). 3. Interpretation of retrograde urethrography, no radiologist was present. 4. Supervision of fluoroscopy, no radiologist was present. 5. Cystourethroscopy with transurethral injection of Botox (Surgery performed for the refractory urge incontinence). ANESTHESIA: General. COMPLICATIONS: None. CLINICAL SUMMARY: Bandar Lao is a 22-year-old man with the above preoperative diagnoses. He is brought for the above procedures. He is paraplegic and does intermittent self-catheterization. He was brought for the above procedure. He is aware of the risks of bleeding, infection, injury to the adjacent structures, and need for future procedures, and elected to proceed. PROCEDURE IN DETAIL: Informed consent was verified. Bandar Lao was properly identified, taken to the operating room, and placed on the cystoscopy table in the supine position. Anesthesia was uneventfully begun. The patient was then carefully and gently repositioned in the dorsal lithotomy position with all pressure points well padded. The patient's genitalia were prepped and draped in the usual sterile fashion. A 22.5-Norwegian cystoscope sheath with the visual obturator in place was atraumatically inserted into the patient's urethra. It was guided on a normal distal urethra to the bulbar region, where there was a bulbar urethral stricture. This stricture was dilated to 22.5-Norwegian in size, i.e. dilated to the size of the cystoscope sheath. We passed through the normal sphincteric region, went through the normal prostate bed, and entered the patient's bladder, where there was minimal amount of inflammation and some sand was noted. This sand was evacuated. An 8-Norwegian catheter was used to cannulate the each ureter and retrograde ureteropyelograms were performed. Interpretation Of Retrograde Ureteropyelography: Contrast was instilled in a retrograde fashion bilaterally. There were no tumors, no stones, and no diverticula. Unobstructed drainage was observed bilaterally fluoroscopically. 200 units of Botox was dissolved in 20 mL of sterile saline, it was then injected in 1 mL aliquots in an even distribution in the supratrigonal bladder. The patient's bladder was then drained. Cystoscope was withdrawn and then the patient was uneventfully reversed from anesthesia and taken to the recovery room in stable condition. Expressive postoperative instructions were given and we will follow the patient up in the office. Denny MD [place]/MODL /[id number]
== END | disposition home or self-care (01) ==
LOC: OR 06:45
PROVIDERS: ATTEND Urology
DX: N39.46 Mixed incontinence (principal); N39.0 Urinary tract infection, site not specified; N35.912 Unspecified bulbous urethral stricture, male; N31.9 Neuromuscular dysfunction of bladder, unspecified; N52.9 Male erectile dysfunction, unspecified; N32.89 Other specified disorders of bladder; G82.20 Paraplegia, unspecified; J45.909 Unspecified asthma, uncomplicated; F41.9 Anxiety disorder, unspecified
CPT/HCPCS: 36415; 52281; 74420; 80048; 85025; C1758; J0587; J1100; J1580; J2001; J2250; J2405; J2543; J2704; Q9967

== ENCOUNTER 2020-12-20 17:57 | Inpatient (IN) | payer BC, OTHER ==
[~2020-12-20] VITALS: Ht 185.4 cm; Wt 72.6 kg
[~2020-12-20 17:57] MED LIST changes: -BELLADONNA/OPIUM 30 MG SUPP RC ONE; -BOTULINUM TOXIN TYPE A 100 UNIT VIAL IM ONE; -DEXAMETHASONE SOD PHOS INJ 4 MG/ML VIAL ONE; -FENTANYL CITRATE/PF 100MCG/2 ML INJ ONE; -GENTAMICIN 80MG/NS 100 ML 200 ML IV ONE; -IOPAMIDOL 610MG/1ML 300 MG/ML VIAL IV ONE; -LIDOCAINE HCL 2% LOCAL INJ 5 ML SDV VIAL INJ ONE; -MIDAZOLAM HCL 2 MG/2 ML VIAL ONE; -ONDANSETRON HCL INJ 2MG/ML 2ML 2 MG/ML VIAL ONE; -PIPER-TAZ 3.375 GM 50 ML ONE; -PROPOFOL IV EMULSION 10 MG/ML 20 ML VIAL ONE; -SEVOFLURANE INHAL SOLN 250 ML PEN BTL ONE
[2020-12-20] MEDS ORDERED: SODIUM CHLORIDE 0.9% 1000ML 1,000 ML IV STA ×2 (18:18)
[2020-12-20] MEDS ORDERED: SODIUM CHLORIDE 0.9% 1000ML 1,000 ML ONE (18:24)
[2020-12-20] MEDS ORDERED: ACETAMINOPHEN 325 MG TAB PO ONE (18:30)
[2020-12-20 18:35] LABS: BASOPHILS # (AUTO) 0.1 (0.0-0.1); BASOPHILS % 0.3 % (0.0-1.0); EOSINOPHILS % 0.2 % (0.0-6.0); HEMOGLOBIN 14.7 g/dL (14.0-18.0); LYMPHOCYTES # (AUTO) 1.6 (1.0-3.2); LYMPHOCYTES % 9.7 % (18.0-39.1); MEAN CORPUSCULAR HEMOGLOBIN 30.2 pg (28-32); MEAN CORPUSCULAR VOLUME 86.4 fL (81-99); MONOCYTES # (AUTO) 1.1 (0.2-0.8); MONOCYTES % 6.9 % (4.4-11.3); NEUTROPHILS # (AUTO) 13.4 (2.1-6.9); NEUTROPHILS % 82.3 % (38.7-80.0); PLATELET COUNT 244 x10e3/uL (140-360); RED BLOOD COUNT 4.86 x10e6/uL (4.3-5.7); RED CELL DISTRIBUTION WIDTH 12.7 % (11.7-14.4)
[2020-12-20] MEDS ORDERED: CEFEPIME HCL 1GM 1 GM in SODIUM CHLORIDE 0.9% 50ML 50 ML IV SCH (18:35)
[2020-12-20 18:50] LABS: CLARITY,URINE HAZY (CLEAR); COLOR,URINE YELLOW (YELLOW); KETONES,URINE NEGATIVE (NEGATIVE); LEUKOCYTE ESTERASE ,URINE SMALL (NEGATIVE); NITRITE,URINE NEGATIVE (NEGATIVE); PROTEIN,URINE DIPSTICK NEGATIVE (NEGATIVE); URINE UROBILINOGEN 0.2 mg/dL (0.2 - 1)
[2020-12-20 18:53] LABS: ALANINE AMINOTRANSFERASE 34 IU/L (0-55); ALBUMIN 4.1 g/dL (3.5-5.0); ALBUMIN/GLOBULIN RATIO 1.2 (0.8-2.0); ALKALINE PHOSPHATASE 73 IU/L (40-150); ANION GAP 12.7 mmol/L (8-16); BLOOD UREA NITROGEN 12 mg/dL (7-26); BUN/CREATININE RATIO 15 (6-25); CALCIUM 9.2 mg/dL (8.4-10.2); CARBON DIOXIDE 28 mmol/L (22-29); CHLORIDE 102 mmol/L (98-107); CREATINE KINASE 79 IU/L (30-200); CREATININE, SERUM 0.81 mg/dL (0.72-1.25); EST GLOMERULAR FILTRATION RATE > 60 ML/MIN (60-); GLUCOSE 85 mg/dL (74-118); POTASSIUM 3.7 mmol/L (3.5-5.1); SODIUM 139 mmol/L (136-145)
[2020-12-20 19:01] LABS: BACTERIA,URINE MANY /HPF
[2020-12-20] MEDS: SODIUM CHLORIDE 0.9% 1000ML 1,000 ML IV SCH (21:00)
[2020-12-20] MEDS ORDERED: FENTANYL CITRATE/PF 100MCG/2 ML INJ IV PRN (22:00)
[2020-12-20 23:30] VITALS: BP 95/63
[2020-12-21] VITALS (7 sets, daily range): BP systolic 95–124; BP diastolic 61–107
[2020-12-21] MEDS ORDERED: MELATONIN 5 MG TABLET PO PRN (01:00)
[2020-12-21] MEDS ORDERED: ACETAMINOPHEN 325 MG TAB PO PRN (01:00)
[2020-12-21] MEDS ORDERED: ALBUTEROL/IPRATROPIUM 3 ML NEB NEB PRN (01:00)
[2020-12-21] MEDS ORDERED: DIPHENHYDRAMINE HCL 25 MG CAP PO PRN (01:00)
[2020-12-21] MEDS ORDERED: POLYETHYLENE GLYCOL 3350 17 GM PACK PO PRN (01:00)
[2020-12-21] MEDS ORDERED: LIDOCAINE 4% PATCH TP PRN (01:00)
[2020-12-21] MEDS ORDERED: DEXTROSE 50% SYRINGE 50 ML IV PRN (01:00)
[2020-12-21] MEDS ORDERED: POTASSIUM CHLORIDE 20 MEQ TAB CR PO PRN (01:00)
[2020-12-21] MEDS ORDERED: BENZONATATE 100 MG CAP PO PRN (01:00)
[2020-12-21] MEDS ORDERED: DOCUSATE SODIUM 100 MG CAP PO PRN (01:00)
[2020-12-21] MEDS ORDERED: ONDANSETRON HCL INJ 2MG/ML 2ML 2 MG/ML VIAL IV PRN (01:00)
[2020-12-21] MEDS: MIDODRINE 2.5 MG TAB PO SCH ×4 (01:46→18:12)
[2020-12-21 06:04] LABS: BASOPHILS # (AUTO) 0.1 (0.0-0.1); BASOPHILS % 0.4 % (0.0-1.0); EOSINOPHILS # (AUTO) 0.1 (0.0-0.4); EOSINOPHILS % 0.8 % (0.0-6.0); HEMATOCRIT 38.5 % (38.2-49.6); HEMOGLOBIN 13.1 g/dL (14.0-18.0); LYMPHOCYTES # (AUTO) 1.9 (1.0-3.2); LYMPHOCYTES % 15.6 % (18.0-39.1); MEAN CORPUSCULAR HEMOGLOBIN 30.3 pg (28-32); MEAN CORPUSCULAR VOLUME 88.9 fL (81-99); MONOCYTES # (AUTO) 0.9 (0.2-0.8); MONOCYTES % 7.6 % (4.4-11.3); NEUTROPHILS # (AUTO) 9.3 (2.1-6.9); NEUTROPHILS % 75.2 % (38.7-80.0); PLATELET COUNT 235 x10e3/uL (140-360); RED BLOOD COUNT 4.33 x10e6/uL (4.3-5.7)
[2020-12-21 06:22] LABS: ALANINE AMINOTRANSFERASE 37 IU/L (0-55); ALBUMIN 3.3 g/dL (3.5-5.0); ALBUMIN/GLOBULIN RATIO 1.2 (0.8-2.0); ALKALINE PHOSPHATASE 67 IU/L (40-150); ANION GAP 12.3 mmol/L (8-16); BLOOD UREA NITROGEN 10 mg/dL (7-26); BUN/CREATININE RATIO 13 (6-25); CALCIUM 8.1 mg/dL (8.4-10.2); CARBON DIOXIDE 25 mmol/L (22-29); CHLORIDE 109 mmol/L (98-107); CREATININE, SERUM 0.77 mg/dL (0.72-1.25); EST GLOMERULAR FILTRATION RATE > 60 ML/MIN (60-); GLUCOSE 95 mg/dL (74-118); POTASSIUM 4.3 mmol/L (3.5-5.1); SODIUM 142 mmol/L (136-145)
[2020-12-21] MEDS: SODIUM CHLORIDE 0.9% 1000ML 1,000 ML IV SCH ×2 (06:32→18:11)
[2020-12-21 06:35] LABS: PHOSPHORUS 2.5 MG/DL (2.3-4.7)
[2020-12-21] MEDS: PANTOPRAZOLE SOD 40 MG TABEC PO SCH (07:30)
[2020-12-21] MEDS ORDERED: MIDODRINE 2.5 MG TAB PO SCH (08:00)
[2020-12-21] MEDS: CEFEPIME HCL 1GM 1 GM in SODIUM CHLORIDE 0.9% 50ML 50 ML IV SCH ×2 (09:00→20:50)
[2020-12-21] MEDS: HYDROCODONE/APAP 5MG-325MG TAB PO PRN ×2 (10:36→18:37)
[2020-12-21] MEDS: ENOXAPARIN SOD INJ 40 MG/0.4 ML SYR SC SCH (18:11)
[2020-12-22 00:14] VITALS: BP 94/70
[2020-12-22] MEDS: HYDROCODONE/APAP 5MG-325MG TAB PO PRN ×3 (00:54→17:52)
[2020-12-22 04:00] VITALS: BP 103/74
[2020-12-22 06:17] LABS: BASOPHILS % 0.5 % (0.0-1.0); EOSINOPHILS # (AUTO) 0.2 (0.0-0.4); EOSINOPHILS % 2.6 % (0.0-6.0); HEMATOCRIT 38.8 % (38.2-49.6); LYMPHOCYTES # (AUTO) 1.6 (1.0-3.2); LYMPHOCYTES % 27.3 % (18.0-39.1); MEAN CORPUSCULAR HEMOGLOBIN 29.9 pg (28-32); MEAN CORPUSCULAR HGB CONC 33.5 g/dL (31-35); MEAN CORPUSCULAR VOLUME 89.2 fL (81-99); MONOCYTES # (AUTO) 0.5 (0.2-0.8); NEUTROPHILS # (AUTO) 3.5 (2.1-6.9); NEUTROPHILS % 60.3 % (38.7-80.0); PLATELET COUNT 203 x10e3/uL (140-360); RED BLOOD COUNT 4.35 x10e6/uL (4.3-5.7); RED CELL DISTRIBUTION WIDTH 12.9 % (11.7-14.4)
[2020-12-22] MEDS: SODIUM CHLORIDE 0.9% 1000ML 1,000 ML IV SCH ×3 (06:17→21:09)
[2020-12-22 06:44] LABS: ANION GAP 11.8 mmol/L (8-16); BLOOD UREA NITROGEN 14 mg/dL (7-26); BUN/CREATININE RATIO 18 (6-25); CALCIUM 8.3 mg/dL (8.4-10.2); CARBON DIOXIDE 25 mmol/L (22-29); CHLORIDE 107 mmol/L (98-107); CREATININE, SERUM 0.76 mg/dL (0.72-1.25); EST GLOMERULAR FILTRATION RATE > 60 ML/MIN (60-); GLUCOSE 73 mg/dL (74-118); POTASSIUM 3.8 mmol/L (3.5-5.1); SODIUM 140 mmol/L (136-145)
[2020-12-22 08:14] VITALS: BP 109/75
[2020-12-22] MEDS: MIDODRINE 2.5 MG TAB PO SCH (09:51)
[2020-12-22] MEDS: PANTOPRAZOLE SOD 40 MG TABEC PO SCH (09:52)
[2020-12-22] MEDS: CEFEPIME HCL 1GM 1 GM in SODIUM CHLORIDE 0.9% 50ML 50 ML IV SCH (09:52)
[2020-12-22] MEDS: MEROPENEM 500MG/ NS 50ML 50 ML IV SCH ×2 (12:00→20:46)
[2020-12-22 12:19] VITALS: BP 102/58
[2020-12-22 16:42] VITALS: BP 112/78
[2020-12-22] MEDS: ENOXAPARIN SOD INJ 40 MG/0.4 ML SYR SC SCH (17:33)
[2020-12-22 20:00] VITALS: BP 120/61
[2020-12-23] VITALS (8 sets, daily range): BP systolic 94–134; BP diastolic 60–103
[2020-12-23] MEDS: MEROPENEM 500MG/ NS 50ML 50 ML IV SCH ×3 (03:57→20:28)
[2020-12-23] MEDS: HYDROCODONE/APAP 5MG-325MG TAB PO PRN ×3 (04:31→18:42)
[2020-12-23] MEDS ORDERED: ONDANSETRON HCL 4 MG ORAL DISINTEGRATING TAB PO PRN (08:15)
[2020-12-23] MEDS: PANTOPRAZOLE SOD 40 MG TABEC PO SCH (08:34)
[2020-12-23] MEDS: ENOXAPARIN SOD INJ 40 MG/0.4 ML SYR SC SCH (16:43)
[2020-12-23] MEDS ORDERED: PROMETHAZINE 25MG/ NS 50ML (IV) IV PRN (20:30)
[2020-12-23] MEDS ORDERED: MORPHINE SULFATE INJ 4 MG/ML INJ 1ML IV PRN (20:30)
[2020-12-23] MEDS ORDERED: SODIUM CHLORIDE 0.9% 250ML 250 ML ONE (20:34)
[2020-12-24] VITALS: BP 102/74
[2020-12-24] MEDS: CYCLOBENZAPRINE HCL 10 MG TAB PO PRN ×2 (01:37→11:56)
[2020-12-24] MEDS: MEROPENEM 500MG/ NS 50ML 50 ML IV SCH ×2 (03:55→11:52)
[2020-12-24 05:33] VITALS: BP 108/61
[2020-12-24 07:38] VITALS: BP 103/67
[2020-12-24] MEDS: PANTOPRAZOLE SOD 40 MG TABEC PO SCH (08:49)
[2020-12-24 09:10] VITALS: BP 103/67
[2020-12-24 11:19] VITALS: BP 110/93
== END 2020-12-24 13:25 | disposition home or self-care (01) | DRG 698 ==
LOC: ER 18:20 → ERHOLD 20:04 → MED/SURG2 22:24
PROVIDERS: ADMIT Internal Medicine; ATTEND Internal Medicine
DX: T83.518A Infection and inflammatory reaction due to other urinary catheter, initial encounter (principal); A41.51 Sepsis due to Escherichia coli [E. coli]; R65.20 Severe sepsis without septic shock; N39.0 Urinary tract infection, site not specified; G82.21 Paraplegia, complete; Z16.12 Extended spectrum beta lactamase (ESBL) resistance; D72.829 Elevated white blood cell count, unspecified; I95.89 Other hypotension; D64.9 Anemia, unspecified; N31.9 Neuromuscular dysfunction of bladder, unspecified; N39.498 Other specified urinary incontinence; Z20.822 Contact with and (suspected) exposure to COVID-19
CPT/HCPCS: 36415; 71045; 74176; 80048; 80053; 81001; 82550; 82553; 83605; 83735; 84100; 84484; 85025; 87040; 87086; 87186; 99284; J0692; J1650; J3010; J7030; J7050; U0002

== ENCOUNTER 2021-03-15 11:08 | Emergency (ER) | payer BC, OTHER ==
[~2021-03-15] VITALS: Ht 185.4 cm; Wt 72.6 kg
[2021-03-15] MEDS ORDERED: ONDANSETRON HCL INJ 2MG/ML 2ML 2 MG/ML VIAL IV STA (11:25)
[2021-03-15] MEDS ORDERED: SODIUM CHLORIDE 0.9% 1000ML 1,000 ML IV STA (11:25)
[2021-03-15 11:34] LABS: BASOPHILS % 0.3 % (0.0-1.0); EOSINOPHILS # (AUTO) 0.1 (0.0-0.4); EOSINOPHILS % 0.8 % (0.0-6.0); HEMATOCRIT 45.4 % (38.2-49.6); HEMOGLOBIN 15.8 g/dL (14.0-18.0); LYMPHOCYTES # (AUTO) 1.3 (1.0-3.2); LYMPHOCYTES % 17.9 % (18.0-39.1); MEAN CORPUSCULAR HEMOGLOBIN 29.8 pg (28-32); MEAN CORPUSCULAR HGB CONC 34.8 g/dL (31-35); MEAN CORPUSCULAR VOLUME 85.7 fL (81-99); MONOCYTES # (AUTO) 0.4 (0.2-0.8); MONOCYTES % 4.8 % (4.4-11.3); NEUTROPHILS # (AUTO) 5.5 (2.1-6.9); NEUTROPHILS % 75.9 % (38.7-80.0); PLATELET COUNT 193 x10e3/uL (140-360); RED CELL DISTRIBUTION WIDTH 12.2 % (11.7-14.4)
[2021-03-15 11:46] LABS: ALBUMIN 4.5 g/dL (3.5-5.0); ALBUMIN/GLOBULIN RATIO 1.5 (0.8-2.0); ANION GAP 13.7 mmol/L (8-16); CREATININE, SERUM 0.8 mg/dL (0.72-1.25); MAGNESIUM 1.8 MG/DL (1.3-2.1); POTASSIUM 3.7 mmol/L (3.5-5.1)
[2021-03-15 11:52] LABS: CREATINE KINASE MB 4.2 ng/mL (0-5.0)
[2021-03-15 12:38] LABS: AMPHETAMINES SCREEN,URINE NEGATIVE (NEGATIVE); BENZODIAZEPINES SCREEN,URINE NEGATIVE (NEGATIVE); PHENCYCLIDINE SCREEN,URINE NEGATIVE (NEGATIVE)
[2021-03-15 12:39] LABS: CLARITY,URINE CLOUDY (CLEAR); COLOR,URINE YELLOW (YELLOW); KETONES,URINE TRACE (NEGATIVE); LEUKOCYTE ESTERASE ,URINE NEGATIVE (NEGATIVE); NITRITE,URINE NEGATIVE (NEGATIVE); PROTEIN,URINE DIPSTICK NEGATIVE (NEGATIVE); URINE UROBILINOGEN 0.2 mg/dL (0.2 - 1)
[2021-03-15 12:44] LABS: AMORPHOUS SEDIMENT,URINE FEW (FEW); BACTERIA,URINE RARE /HPF; MUCUS,URINE FEW (RARE); RBC,URINE 0-5 /HPF (0-5); WBC,URINE (MAN) 0-5 /HPF (0-5)
[2021-03-15] MEDS ORDERED: KETOROLAC TROMETHAMINE 60 MG/2 ML VIAL IM ONE (16:15)
[2021-03-15] MEDS ORDERED: HYDROCODONE/APAP 5MG-325MG TAB PO ONE (16:15)
[2021-03-15 16:43] VITALS: BP 129/78
== END 2021-03-15 17:25 | disposition home or self-care (01) ==
LOC: ER 11:53
DX: R51.9 Headache, unspecified (principal); G82.20 Paraplegia, unspecified
CPT/HCPCS: 36415; 70450; 71045; 80053; 80307; 81001; 82550; 82553; 83735; 83880; 84484; 85025; 87040; 87086; 93005; 99284; J1885; J7030

== ENCOUNTER 2021-10-15 15:32 | Emergency (ER) | payer BC, OTHER ==
[~2021-10-15] VITALS: Ht 185.4 cm; Wt 72.6 kg
[2021-10-15] MEDS ORDERED: IBUPROFEN 600 MG TAB PO STA (15:40)
[2021-10-15] MEDS ORDERED: ACETAMINOPHEN 325 MG TAB PO ONE (15:45)
[2021-10-15 16:32] LABS: CLARITY,URINE SL CLOUDY (CLEAR); COLOR,URINE AMBER (YELLOW); KETONES,URINE >=160 (NEGATIVE); LEUKOCYTE ESTERASE ,URINE NEGATIVE (NEGATIVE); NITRITE,URINE NEGATIVE (NEGATIVE); PROTEIN,URINE DIPSTICK 2+ (NEGATIVE); URINE UROBILINOGEN 0.2 mg/dL (0.2 - 1)
[2021-10-15 16:47] LABS: AMORPHOUS SEDIMENT,URINE MODERATE (FEW); BACTERIA,URINE MODERATE /HPF; EPITHELIAL CELLS,URINE FEW /LPF; MUCUS,URINE MODERATE (RARE)
[2021-10-15] MEDS ORDERED: IBUPROFEN600 MG PO (17:50)
[2021-10-15] MEDS ORDERED: BENZONATATE200 MG PO (17:50)
== END 2021-10-15 18:09 | disposition home or self-care (01) ==
LOC: ER 15:49
DX: R50.9 Fever, unspecified (principal); J10.1 Influenza due to other identified influenza virus with other respiratory manifestations; R05.9 Cough, unspecified; Z20.822 Contact with and (suspected) exposure to COVID-19; G82.20 Paraplegia, unspecified
CPT/HCPCS: 71045; 81001; 99283; U0002

== ENCOUNTER 2023-01-18 20:33 | Emergency (ER) | payer BC, OTHER ==
[~2023-01-18] VITALS: Ht 185.4 cm; Wt 72.6 kg
[~2023-01-18 20:33] MED LIST changes: +BENZONATATE200 MG PO; +IBUPROFEN600 MG PO
[2023-01-18 21:38] LABS: ALBUMIN 3.2 g/dL (3.5-5.0); ANION GAP 10.4 mmol/L (8-16); CALCIUM 8.5 mg/dL (8.4-10.2); CREATININE, SERUM 0.78 mg/dL (0.72-1.25); POTASSIUM 4.4 mmol/L (3.5-5.1)
[2023-01-18 21:40] LABS: BASOPHILS % 0.5 % (0.0-1.0); EOSINOPHILS # (AUTO) 0.2 (0.0-0.4); EOSINOPHILS % 3.9 % (0.0-6.0); HEMATOCRIT 37.8 % (38.2-49.6); LYMPHOCYTES # (AUTO) 1.9 (1.0-3.2); LYMPHOCYTES % 31.5 % (18.0-39.1); MEAN CORPUSCULAR HEMOGLOBIN 29.2 pg (28-32); MEAN CORPUSCULAR HGB CONC 31.7 g/dL (31-35); MONOCYTES # (AUTO) 0.5 (0.2-0.8); MONOCYTES % 7.7 % (4.4-11.3); NEUTROPHILS # (AUTO) 3.4 (2.1-6.9); NEUTROPHILS % 56.1 % (38.7-80.0); PLATELET COUNT 277 x10e3/uL (140-360); RED BLOOD COUNT 4.11 x10e6/uL (4.3-5.7); RED CELL DISTRIBUTION WIDTH 13.2 % (11.7-14.4)
[2023-01-18 21:54] LABS: CLARITY,URINE SL CLOUDY (CLEAR); COLOR,URINE YELLOW (YELLOW); KETONES,URINE TRACE (NEGATIVE); LEUKOCYTE ESTERASE ,URINE TRACE (NEGATIVE); NITRITE,URINE POSITIVE (NEGATIVE); PROTEIN,URINE DIPSTICK 1+ (NEGATIVE); URINE UROBILINOGEN 1 mg/dL (0.2 - 1)
[2023-01-18 22:00] LABS: BACTERIA,URINE MODERATE /HPF; EPITHELIAL CELLS,URINE RARE /LPF; RBC,URINE 0-5 /HPF (0-5)
[2023-01-19] MEDS ORDERED: CEPHALEXIN500 MG PO (00:19)
[2023-01-19 00:42] VITALS: BP 114/77; PULSE 75; RESP 16; TEMP 98.4; O2SAT 100
== END 2023-01-19 00:33 | disposition home or self-care (01) ==
LOC: ER 20:41
DX: N39.0 Urinary tract infection, site not specified (principal); M79.89 Other specified soft tissue disorders; G82.20 Paraplegia, unspecified; Z79.899 Other long term (current) drug therapy
CPT/HCPCS: 36415; 80053; 81001; 85025; 87086; 87186; 93971; 99284